=== PATIENT | male | born 1980 | race Caucasian/White ===

== ENCOUNTER 2019-05-16 08:53 | Outpatient (RCR) | payer BC, SELFPAY ==
--- NOTE | 2019-05-16 10:08 | PTOPEVAL ---
Thank you for referring this patient to [facility] [place]. Please review, sign, date and return this plan of care [facility]. I agree with and certify that the following plan of care is medically necessary. Referring Physician Date Admitting Provider: Attending Provider: Blane Trevizo MD Referring Provider: *PT Outpatient Evaluation Start: 05/16/19 09:07 Freq: Status: Active Protocol: Document 05/16/19 09:07 Nathalia (Rec: 05/16/19 10:04 [facility] [id number]) Therapy Assessment Status Assessment Status Assessment Status Evaluation Outpatient Past Medical History Cardiovascular History Hx Other Cardiac Disorders Yes: blood clot L groin. 2 angiograms Evaluation Information Problem Diagnosis L LE pain, Lumbar radiculopathy. Onset 05/05/19 Additional Evaluation Detail oswestry = 26%. Subjective Information patient reports he has been Query Text:As Reported By Patient/ having pain in the back of his Family L LE - in the calf muscle area. he reports the pain has been going on for about 2 months. he reports he has had a blood clot in the L groin in the past. he reports he has had an angiogram of the L LE about 2 weeks ago. he reports increased calf pain with walking and standing. he reports he is on Xarelto. Previous Treatments Previous Treatments For This Problem angiograms Prior Level of Function Comments Additional Prior Level of Function patient reports prior to 2 Comments months ago, he has had pain in the L calf, but reports it was at a manageable level. he reports in the last 2 month it has gotten worse. he reports he is currently off work - [employer]. Pain Assessment Timing of Pain Assessment Timing of Pain Assessment Assessment Pain Scale Pain Scale Used Numeric (1 - 10) Self Report Pain Assessment Lower Back Reported Pain Level 2 Pain Description Aching,Tightness Pain Frequency Acute,Continuous Additional Pain Comments similar to the calf pain. Left Calf/Calves Reported Pain Level 2 Pain Description Numbness,Tightness Pain Frequency Acute,Chronic Current Pain Intensity 2 Lowest Pain Intensity
--- NOTE | 2019-06-09 15:13 | PCPTNOTE ---
06/09/19n - patient was a no call/no show for therapy this morning. SHANNAN
--- NOTE | 2019-08-15 07:40 | PCPTNOTE ---
08/15/19 - mr. lopez has not been to therapy for over 2 months. he has been called and has not returned any calls or made appointments to finish his POC. as of this date, he will be DC'd from skilled PT and all progress towards goals will be taken from his most recent evaluation/note.
== END 2019-06-07 23:59 | disposition home or self-care (01) ==
LOC: CHSPT 08:53
PROVIDERS: Visit Provider Internal Medicine
DX: M79.605 Pain in left leg (principal); M54.17 Radiculopathy, lumbosacral region
CPT/HCPCS: 97014; 97110; 97162; G0283

== ENCOUNTER 2020-03-13 06:11 | Emergency (ER) | payer MEDICAID, SELFPAY ==
[2020-03-13] VITALS (8 sets, daily range): BP systolic 100–145; BP diastolic 61–92; PULSE 75–96; RESP 18–20; TEMP 36.2; O2SAT 96–99
--- NOTE | ~2020-03-13 | XR_ITS ---
EXAMINATION: XR chest 2V EXAM DATE: 03/13/2020 06:49 INDICATION: Mid chest pain. TECHNIQUE: Frontal and lateral projections of the chest obtained and reviewed. There is no prior ez dy for comparison. FINDINGS: The lungs are clear. There are no pleural effusions. The cardiomediastinal silhouette is within normal limits. There is no pneumothorax suspected. The bones and soft tissues are unremarkab le. IMPRESSION: No acute cardiopulmonary findings. Reviewed, dictated and finalized at location A.
--- NOTE | 2020-03-13 06:23 | ECG_ITS ---
Measurements Intervals [place] Rate: 98 P: 61 MI: 156 QRS: 28 QRSD: 120 T: 118 QT: 360 QTc: 460 Interpretive Statements SINUS RHYTHM INTRAVENTRICULAR CONDUCTION DELAY BORDERLINE R WAVE PROGRESSION, ANTERIOR LEADS BORDERLINE ST-T WAVE ABNORMALITY- DIFFUSE LEADS BASELINE ARTIFACT- I, II, III, AVR, AVL, AVF, V1-V4 BORDERLINE ECG Electronically Signed On 03-13-2020 8:29:16 CDT by Rick Braun D.O.
--- NOTE | 2020-03-13 06:23 | ED.CHESTPAIN ---
HPI - Chest Pain General Chief Complaint: Chest Pain Stated Complaint: chest pains Time Seen by Provider: 03/13/20 06:23 Source: patient Mode of arrival: ambulatory Limitations: no limitations History of Present Illness HPI narrative: 39-year-old man comes in today complaining of dull chest pain that has been present since yesterday morning. Patient states that it is not exacerbated by exercise But is relieved by sitting and resting. Has nausea, sweating. Denies vomiting, shortness of breath or ankle swelling. He has a history of arterial thromboembolism. MD complaint: chest pain Onset (ago): day(s) (1) Timing of current episode: constant Prior episodes: No Onset: during rest Pain location: substernal Pain radiation: none Severity: moderate Quality: dull Relieving factors: rest Exacerbating factors: nothing Context: history of DVT/PE Associated symptoms: nausea and diaphoresis Treatment prior to arrival: none Risk Factors Coronary artery disease risk factors: smoking history Pulmonary embolism risk factors: morbid obesity Related Data Home Medications Medication Instructions Recorded Confirmed No Home Medications 03/13/20 03/13/20 Allergies Allergy/AdvReac Type Severity Reaction Status Date / Time No Known Allergies Allergy Verified 03/13/20 06:19 Review of Systems Constitutional: Constitutional: Denies chills and Denies fever(s) Comments: diaphoresis Eyes: Eyes: Denies change in vision and Denies photophobia ENT: Denies dysphagia, Denies nasal congestion and Denies sore throat Cardiovascular: Cardiovascular: Reports chest pain and Denies radiating jaw, neck or arm pain Respiratory: Respiratory: Denies cough, Denies dyspnea and Denies wheezing Gastrointestinal: Gastrointestinal: Denies abdominal pain, Reports nausea and Denies vomiting Genitourinary: Genitourinary: Denies hematuria, Denies dysuria and Denies urinary frequency Musculoskeletal: Musculoskeletal: Denies back pain and Denies joint swelling Integumentary/Breasts: Skin/Breast: Denies pruritus, Denies erythema and Denies rash Neurologic: Denies vertigo, Denies dizziness and Denies syncope Allergic/Immunologic: Allergic/Immunologic: Denies lip swelling and Denies throat swelling [facility] Past Medical History Medical History Arterial embolism LLEMat Social History Social History (Reviewed 09/16/20 @ 07:38 by VIRIDIANA Esparza Smoking packs per day: 2 Smoking cigarettes per day: 40.0 Smoking status: Current every day smoker Tobacco type: cigarettes Alcohol intake: never Substance use: never Spiritual care concerns: No Exam Const: General: alert Nutritional Appearance: obese Orientation/consciousness: patient oriented x3 Other: mild-mod acute distress HENMT: Mouth: Yes moist mucous membranes Throat: posterior oropharynx normal Other: Diffuse dental decay Eyes: Conjunctivae: conjunctivae normal Pupils: Equal, round and reactive pupils present EOM: EOMs intact bilaterally Resp: Effort & Inspection: normal respiratory effort and not labored Auscultation: clear to auscultation bilaterally, no rales, no rhonchi and no wheezes Cardio: Rate: regular rate Rhythm: regular rhythm Heart sounds: no murmurs Skin: General skin exam: normal color, no jaundice and no pallor Rashes: no rashes Neuro: General: patient oriented x3, moves all extremities, no focal motor deficits and CN's II-XI intact bilaterally Speech: normal speech Gait exam (Neuro): Normal gait present Extrem: General: normal to inspection and no clubbing, cyanosis or edema Psych: Appearance: grossly normal and well kempt Mental Status: mental status grossly normal Affect: normal affect Attitude: cooperative Thought content: Yes Normal thought content present Course Vital Signs Vital signs: Vital Signs Pulse Rate 80 03/13/20 06:15 Temperature 36.2 C L 03/13/20
[2020-03-13] MEDS: NITROGLYCERIN SL 0.4 MG TABLET (06:38)
[2020-03-13 06:48] LABS: Basophils Absolute Auto 0.05 K/mm3 (0.00-0.10); Basophils Percent Auto 0.4 % (0.0-1.0); Eosinophils Absolute Auto 0.09 K/mm3 (0.02-0.50); Eosinophils Percent Auto 0.7 % (1.0-6.0); Hematocrit 48.6 % (40.0-54.0); Hemoglobin 16.6 g/dL (14.0-18.0); Immature Granulocyte Percent A 0.7 % (0.0-0.0); Lymphocytes Absolute Auto 2.11 K/mm3 (1.10-4.50); Lymphocytes Percent Auto 15.6 % (18.0-42.0); Mean Corpuscular HGB Conc 34.2 g/dL (32.0-36.0); Mean Corpuscular Hemoglobin 31.2 pg (27.0-31.0); Mean Corpuscular Volume 91.4 fL (78.0-102.0); Mean Platelet Volume 10.7 fl (8.7-11.0); Monocytes Absolute Auto 0.84 K/mm3 (0.10-0.90); Monocytes Percent Auto 6.2 % (2.0-11.0); Neutrophils Absolute Auto 10.3 K/mm3 (1.7-7.2); Neutrophils Percent Auto 76.4 % (50.0-70.0); Platelet Count Result 205 K/mm3 (150-420); Red Blood Count 5.32 M/mm3 (4.70-6.10); Red Cell Distribution Width 12.1 % (11.6-14.4); White Blood Count 13.5 K/mm3 (4.8-10.8)
[2020-03-13 06:50] LABS: Add Urine Microscopic? YES; Appearance Urine Clear (Clear); Bilirubin Urine 1+ (Negative); Blood Urine Negative (Negative); Color Urine Yellow (Yellow); Glucose Urine UA Negative (Negative); Ketones Urine Trace (Negative); Leukocyte Esterase Ur Negative LEU/UL (Negative); Nitrate Urine Negative (Negative); Protein Urine 1+ (Negative); Specific Grav Ur >= 1.030 (1.010-1.020)
[2020-03-13 06:54] LABS: RBC Urine 0-2 /hpf (0-2); WBC Urine 0-3 /hpf (0-3)
[2020-03-13 06:55] LABS: Bacteria Urine Trace /hpf
[2020-03-13 06:57] LABS: Alanine Aminotransferase 41 U/L (16-63); Albumin Level 3.5 g/dL (3.4-5.0); Alkaline Phosphatase 100 U/L (46-116); Anion Gap 10 mmol/L (8-16); Aspartate Amino Transferase 21 U/L (15-37); Bilirubin,Total 0.4 mg/dL (0.00-1.00); Blood Urea Nitrogen 9 mg/dL (7-18); Calcium 9.3 mg/dL (8.5-10.1); Carbon Dioxide 25 mmol/L (21-32); Chloride 102 mmol/L (98-108); Estimated CRCL calculation 116 ml/min; Estimated Glomerular Filt Rate > 60; Glucose 184 mg/dL (70-99); Lipase 191 U/L (73-393); Osmolality Calculated 287 mOsm/kg (285-295); Potassium 3.2 mmol/L (3.5-5.1); Sodium 137 mmol/L (136-145); Total Protein 7.5 g/dL (6.4-8.2)
[2020-03-13 06:58] LABS: Amphetamine Screen Urine Negative (Negative); Barbiturate Screen Urine Negative (Negative); Benzodiazepines Screen Urine Negative (Negative); Cannabinoid Screen Urine Negative (Negative); Cocaine Screen Urine Negative (Negative); Methadone Screen Urine Negative (Negative); Opiate Screen Urine Negative (Negative); Phencyclidine Screen Urine Negative (Negative)
[2020-03-13 07:00] LABS: Mucus Urine Moderate /lpf
[2020-03-13 07:07] LABS: Partial Thromboplastin Time 27.9 SEC (22.3-31.6); Prothrombin Time 10.5 Seconds (9.64-11.0)
[2020-03-13 07:12] LABS: D Dimer 0.47 mg/L (0.19-0.50)
[2020-03-13 07:14] LABS: Troponin I 0.51 ng/mL (0.00-0.056)
[2020-03-13 07:16] LABS: BNP 74 pg/mL (0-100)
--- NOTE | 2020-03-13 07:23 | PC.NURSE ---
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 Pt. requests transfer to [place].
--- NOTE | 2020-03-13 07:34 | ED.CHESTPAIN ---
HPI - Chest Pain General Chief Complaint: Chest Pain Stated Complaint: chest pains Time Seen by Provider: 03/13/20 06:23 Source: patient Mode of arrival: ambulatory Limitations: no limitations History of Present Illness HPI narrative: I resumed care from Dr. Inman just after 0700. In summary Luke is a 39M with a pmh of tobacco abuse (2ppd), obesity, and previous arterial thrombosis that prested to the ED with one day of dull chest pain. He woke up with dull pain yesterday that has not been getting better. It is accompanied with SOB, nausea, dizziness, diaphoresis but no vomiting or syncope. He thinks it was worse when he was walking in. The pain was relieved after a dose of nitroglycerin. Pain location: substernal Quality: dull Relieving factors: rest Exacerbating factors: nothing Context: history of DVT/PE Associated symptoms: nausea and diaphoresis Related Data Home Medications Medication Instructions Recorded Confirmed No Home Medications 03/13/20 03/13/20 Allergies Allergy/AdvReac Type Severity Reaction Status Date / Time No Known Allergies Allergy Verified 03/13/20 06:19 Review of Systems Constitutional: Constitutional: Reports as per HPI, Denies body ache(s) and Denies fever(s) Eyes: Eyes: Reports no additional eye complaints ENT: Reports system reviewed and no additional complaints, except as documented Cardiovascular: Cardiovascular: Reports as per HPI Respiratory: Respiratory: Reports as per HPI Gastrointestinal: Gastrointestinal: Denies abdominal pain, Denies belching, Denies diarrhea, Reports nausea and Denies vomiting Genitourinary: Genitourinary: Reports no additional male genitourinary complaints Musculoskeletal: Musculoskeletal: Reports no additional musculoskeletal complaints Integumentary/Breasts: Skin/Breast: Reports system reviewed and no additional complaints, except as docu Neurologic: Reports system reviewed and no additional complaints, except as documented Psychiatric: Psychiatric: Reports no additional psychiatric complaints Endocrine: Endocrine: Reports no additional endocrine complaints Hematologic/Lymphatic: Hematologic/Lymphatic: Reports no additional hematologic/lymphatic complaints Allergic/Immunologic: Allergic/Immunologic: Reports no additional allergic/immunologic complaints [facility] Past Medical History Medical History Arterial embolism LLE, Richardto Social History Social History (Reviewed 03/13/20 @ 07:38 by VIRIDIANA Esparza Smoking status: Current every day smoker Alcohol intake: current Substance use: never Living arrangements: with family Exam Const: General: comfortable, well developed, alert and awake Nutritional Appearance: overweight Orientation/consciousness: oriented to person, oriented to place and oriented to time Limitations: no limitations Other: Lying in bed with no acute distress but did appear slightly diaphoretic. HENMT: Head: normal to inspection, normocephalic and atraumatic Eyes: General: appearance normal, both eyes and all related structures Neck: Neck: normal visual inspection Chest: Chest palpation & inspection: normal inspection of the chest Resp: Effort & Inspection: normal respiratory effort and able to speak in complete sentences Other: Clear to auscultation bilterally Cardio: Jugular venous distension: no JVD Rate: regular rate Rhythm: regular rhythm Other: No murmurs. GI: Inspection: normal to inspection GI Palp: No abdominal tenderness and Yes Soft to palpation Back/Spine/Pelvis: Back: no CVA tenderness Skin: General skin exam: no rashes or lesions noted Neuro: General: oriented to person, oriented to place and oriented to time Cranial nerves: Yes CN's II-XII intact bilaterally Extrem: General: normal to inspection Psych: Appearance: grossly normal Mental Status: mental status grossly normal Course Course Emergency Course:
[2020-03-13] MEDS: HEPARIN SODIUM 5,000 UNITS/ML VIAL IV PUSH (07:43)
[2020-03-13] MEDS: HEPARIN SOD/D5W 100 UNITS/ML 25,000 UNITS/250 ML BAG 16.2 UNITS IV CONT (07:47)
--- NOTE | 2020-03-13 07:51 | PC.NURSE ---
Awaiting call back from Cardio at [facility].
--- NOTE | 2020-03-13 08:01 | PC.NURSE ---
ERP Dr. 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
--- NOTE | 2020-03-13 08:43 | PHAR ---
03/12/20 - PT'S ABW (135KG) TO IBW(73KG) RATIO >1.2, SO DOSING WEIGHT IS ~98KG. DISCUSSED WITH DR. MOSLEY, WHO CONFIRMED OKAY TO USE 98KG DOSING WEIGHT.
--- NOTE | 2020-03-13 09:12 | PC.NURSE ---
Call placed to [facility] for transfer to [place]. Report given and paperwork for transfer signed.
[2020-03-13 09:16] LABS: Ethanol < 3 mg/dL (0-6)
== END 2020-03-13 09:34 | disposition short-term general hospital (02) ==
PROVIDERS: Emergency Medicine; Emergency Provider Family Medicine; PCP Internal Medicine
DX: I21.4 Non-ST elevation (NSTEMI) myocardial infarction (principal)
CPT/HCPCS: 36415; 71046; 80053; 80307; 81001; 83690; 83880; 84484; 85025; 85380; 85610; 85730; 93005; 96365; 96366; 99285; A9270; J1644

== ENCOUNTER 2020-03-13 10:07 | Inpatient (IN) | payer MEDICAID, SELFPAY ==
[2020-03-13] VITALS (19 sets, daily range): BP systolic 116–138; BP diastolic 67–90; PULSE 72–84; RESP 14–24; TEMP 35.6–36.1; O2SAT 95–100; BMI 42.9
--- NOTE | 2020-03-13 10:07 | PC.NURSE ---
This patient, Luke Faulkner, was admitted to IMU Room 210-01. Patient/family oriented to hospital policies and general routines including ID bracelet, bed and alarms, visiting hours, pain management, procedures, bathroom and other care routines, personal items, smoking policy, room service/diet, and visiting hours. Valuables list has been completed. Information on how to activate the Rapid Response Team has been discussed. Patient/Family are encouraged to report perceived risks to care and to ask questions if they do not understand what they are told or what they should do.
--- NOTE | 2020-03-13 10:51 | PM.IMHP ---
H&P: HPI History of Present Illness Date/Time: date of service:03/13/20 10:51 Chief complaint: chest pain Narrative: Luke Faulkner is a 39 year old male Without previous knowledge of heart problems who is transferred here from [facility] for evaluation of chest pain and evidence of acute coronary syndrome. The patient was in his usual state of health when yesterday he noticed an episode of retrosternal chest pain describes as a dull heaviness that occurred for a short period of time approximately 15-20 minutes and then subsided altogether. He did not become too concerned and did not seek any medical attention at that time. He states this occurred the morning yesterday. This morning early in the morning after awakening sleepy had similar pain and was more severe so he decided to go to the emergency room at [facility] for evaluation. In the emergency room he was given a nitroglycerin tablet which apparently alleviated the chest pain. His electrocardiogram demonstrates sinus mechanism with some nonspecific T-wave abnormalities. There is no acute current of injury. His troponin level was elevated at 0.5 he was then heparinized and transferred [facility] for further evaluation. He appears to be somewhat uncomfortable in the bed supine in room 210 but he states is only tired he does not have any pain currently. The patient is a sedentary individual he does not exercise with any regularity but he does not notice any exertional chest pain with normal daily activities. He has no sense of palpitations orthopnea PND or edema. He does state that interestingly he had of vascular thrombus it sounds like an arterial thrombus about 2 years ago treated interventionally in the left lower extremity and [facility]. He states that he had some ischemic problems in the great toe on the left side and had a procedure to extract the clot. We do not have any records of any of that care obviously at the time of this dictation. After that procedure he was recommended to take anticoagulation with Xarelto for 6 months which he did and then that was withdrawn by his physicians. He currently takes no medication of any kind. He denies any knowledge of hypertension diabetes or dyslipidemia. He smokes heavily about to 2 packs per day. He also drinks alcohol daily. 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 Review of Systems Constitutional: Constitutional: Reports no additional constitutional complaints Eyes: Eyes: Reports no additional eye complaints ENT: Reports system reviewed and no additional complaints, except as documented Cardiovascular: Cardiovascular: Reports as per HPI Respiratory: Respiratory: Reports no additional respiratory complaints Gastrointestinal: Gastrointestinal: Reports no additional gastrointestinal complaints Musculoskeletal: Musculoskeletal: Reports back pain Integumentary/Breasts: Skin/Breast: Reports system reviewed and no additional complaints, except as docu Neurologic: Reports system reviewed and no additional complaints, except as documented Psychiatric: Psychiatric: Reports no additional psychiatric complaints PMFSH Social History Social History Smoking status: Current every day smoker Alcohol intake: current Substance use: never Meds Home Medications and Allergies Home Medications Medication Instructions Recorded Confirmed Type No Home Medications 03/13/20 03/13/20 History Allergies Allergy/AdvReac Type Severity Reaction Status Date / Time No Known Allergies Allergy Verified 03/13/20 06:19 Exam Const: General: no acute distress and uncomfortable Other: Markedly obese white male appears to be in poor overall health. He appears uncomfortable but currently denies pain HENMT: Mouth: Yes moist mucous membranes Eyes: Sclera: sclerae normal Pupils: Equal, round and reactive pupils present Neck: Neck: supple
--- NOTE | 2020-03-13 12:03 | WPDCARDPROC ---
Cardiac Cath Procedure Note Date of procedure:: 03/13/20 Performing physician:: Alan Little MD Indication:: Acute coronary syndrome Brief clinical history:: 39-year-old man with obesity and longstanding cigarette smoking presents with intermittent chest pain and troponin elevation to 0.5. Transferred [facility] for further evaluation. Patient has no previous cardiac history has a history of a left lower extremity arterial thrombus about 2 years ago treated interventionally and anticoagulated for about 6 months at that time. Unfortunately cigarette smoking has continued. Procedure Procedure performed:: Left heart catheterization with left ventriculography and coronary angiography. Sedation/Medication given:: Fentanyl 50 mg Versed 2 mg case start time 11:36 a.m. case end time 11:56 a.m. sedation provided by Chantal Gallegos RN, trained observer Access site:: right femoral Estimated blood loss:: 15-20 cc Procedure note:: patient was brought to the cardiac catheterization lab in the postabsorptive state the right femoral triangle was prepared in the normal fashion anesthesia was provided with 1% lidocaine infiltrated locally. Using the modified Seldinger technique a 5 Liberian sheath was placed into the femoral artery. I then performed left heart catheterization. A 5 Liberian angled pigtail catheter was used to document left-sided hemodynamics, pullback pressures across the aortic valve and injected LV g in the PALUMBO projection. After this the pigtail catheter was withdrawn. A standard 5 Liberian FL4 catheter was used to engage inject the left coronary artery in multiple projections. After this the right coronary was injected using a 5 Liberian JR4 catheter. The case was then terminated the sheath was sutured into position he was taken to the holding area for manual sheath removal and a post cath recovery. There were no procedural complications Findings:: hemodynamics: Central aortic pressure was 126/78 left ventricle 126/6 end-diastolic pressure of 16 there is no significant gradient on pullback across the aortic valve. Left ventricle: The left ventricle is mildly enlarged. The posterior basal segment is akinetic. The remainder of the inferior wall is severely hypodynamic the anterior wall appears to be [id number] hypodynamic but was not well opacified as the catheter was at the base of the posterior wall. Global ejection fraction appears to be approximately 40%. Left main coronary artery is nicely patent the left anterior descending is a medium caliber artery which gives rise to a moderate-sized diagonal branch there is a 80% stenosis in the trunk of the LAD at the origin of this diagonal branch after the origin of the branch the LAD itself is 100% occluded. It is seen to fill on [id number] collaterals down to the apex. Obviously it is a small under filled vessel. Circumflex is a large caliber vessel giving rise to a high marginal/ ramus intermedius branch which is moderately diffusely diseased but without high-grade lesion. The trunk of the circumflex is nicely patent it provides a large 2nd OM branch there is a 50% stenosis at the origin of the trunk of the circumflex after the 2nd OM takes its origin. Posterior branch of the circumflex there is a very small sub branch that has a 90% stenosis. Right coronary artery is small to medium in caliber and is 100% occluded in the 2nd portion. There is a right ventricular branch prior to the occlusion. There are some very faint collaterals to the distal right coronary artery seen on left coronary injection. Conclusion:: 1. Significant coronary artery disease in this 39-year-old man including total occlusion of the mid LAD which appears to be providing viable anterior wall as the vessel is collateralized. There is a 80-90% stenosis in the LAD prior to the occlusion jeopardizing a diagonal branch. 2. Circumflex disease including moderate non high-grade dis
[2020-03-13 12:04] LABS: Activated Clotting Time 114 sec (74-137)
--- NOTE | 2020-03-13 12:10 | SUR.PHASEII ---
BEGIN PHASE II RECOVERY. RETURNS TO SOIL ANALYST 3 VIA STRETCHER S/P [facility] W/ DR. HERNANDEZ. AWAKE, BUT DROWNSY. DENIES CP OR SOB ON ARRIVAL. VSS. MONITOR SR. 5FR SHEATH R. GROIN INTACT. DRESSING D/I. SITE WITHOUT BLEEDING OR HEMATOMA. SITE NONTENDER. FAMILY TO BEDSIDE. WILL CONTINUE TO MONITOR.
--- NOTE | 2020-03-13 12:58 | SUR.PHASEII ---
MANUAL 5FR SHEATH PULL R. FEM ARTERY PER PROTOCOL AT THIS TIME. FIRM STEADY MANUAL PRESSURE TO SITE UNTIL HEMOSTASIS. TOLERATING WELL. VSS.
--- NOTE | 2020-03-13 13:30 | SUR.PHASEII ---
HEMOSTASIS ACHIEVED TO R. GROIN PUNCTURE SITE AFTER 32 MINUTES MANUAL PRESSURE HOLD. TOLERATED WELL. SITE SOFT, NONTENDER. NO BLEEDING OR HEMATOMA NOTED. SITE DRESSED W/ STAT SEAL AND TEGADERM. R. PEDAL PULSE STRONG. REVIEWED BEDREST ORDERS AND BEDREST ACTIVITY RESTRICTIONS W/ PT. VOICED UNDERSTANDING. BEDREST X 4 HOURS UNTIL 1730. IVF'S RUNNING ORDERED. VSS. MOTHER TO BEDSIDE. AJAY CONTINUE TO MONITOR.
--- NOTE | 2020-03-13 14:45 | SUR.PHASEII ---
END PHASE II RECOVERY. REPORT CALLED TO EMILIA CULLEN RN AT 1415. RETURNED VIA BED TO IMU 210. NO CHANGE IN R. GROIN SITE. STRONG R. PEDAL AND POST TIB PULSE. VSS. VOICES NO C/O.
[2020-03-13] MEDS: SODIUM CHLORIDE 0.9% IV 1,000 ML 125 ML IV CONT (15:00)
--- NOTE | 2020-03-13 17:36 | PM.TDS ---
Transfer Discharge Sum: Prov Provider Date of admission: 03/13/20 11:47 Primary care physician: Blane Trevizo MD Admitting clinician: Lucien Little MD Attending physician on admission: Alan Little Attending physician on discharge: Alan Little Discharging clinician: Delores Jordan Anticipated date of transfer: 03/13/20 Receiving physician/facility: at [facility] DS: Admitting Diagnosis Admitting Diagnosis Admitting Diagnosis: Acute coronary syndrome DS: Discharge Diagnosis Discharge Diagnosis (1) Acute coronary syndrome: Code(s): I24.9 - Acute ischemic heart disease, unspecified Status: Acute Assessment and Plan: Transferred from [facility] with acute coronary syndrome. Cardiac catheterization 03/13/2020: The left ventricle is mildly enlarged. The posterior basal segment is akinetic. The remainder of the inferior wall is severely hypodynamic the anterior wall appears to be [id number] hypodynamic but was not well opacified as the catheter was at the base of the posterior wall. Global ejection fraction appears to be approximately 40% Significant coronary artery disease in this 39-year-old man including total occlusion of the mid LAD which appears to be providing viable anterior wall as the vessel is collateralized. There is a 80-90% stenosis in the LAD prior to the occlusion jeopardizing a diagonal branch. Circumflex disease including moderate non high-grade disease in a small to medium size ramus intermedius branch as well as a 90% stenosis and a small distal subbranch of the posterior circumflex vessel. 100% occlusion of the mid right coronary artery with faint collaterals and evidence of previous infero posterior infarction on LV g Recommendations transferred to [facility]. Revascularization options would include CABG to the LAD/ diagonal branch or a consider higher risk HEALTHCARE MANAGER LAD diagonal intervention in this otherwise unfortunately young man with advanced coronary disease. The RCA territory appears to be an infarct zone and is unlikely to benefit from revascularization (2) Tobacco abuse: Code(s): Z72.0 - Tobacco use Status: Acute Assessment and Plan: Smoking cessation counseling Transfer Discharge Sum: Med Medications Active and Home Medications: Home Medications No Home Medications 03/13/20 [History Confirmed 03/13/20] Active Medications Aspirin (Aspirin Ec) 81 mg PO QAM [facility] Sodium Chloride (Normal Saline Iv) 1,000 mls @ 125 mls/hr IV CONT .Q8H ONE Stop: 03/13/20 20:00 Last Admin: 03/13/20 15:00 Dose: 125 mls/hr Documented by: Rosuvastatin Calcium (Crestor) 20 mg PO QAM [facility] Transfer Discharge Sum: Hosp Hospital Course Hospital course: Luke Faulkner is a 39 year old male without previous knowledge of heart problems who was transferred to [facility] from [facility] for evaluation of chest pain and evidence of acute coronary syndrome. He was in his usual state of health when yesterday he noticed an episode of retrosternal chest pain describes as a dull heaviness that occurred for a short period of time approximately 15-20 minutes and then subsided altogether. He did not become too concerned and did not seek any medical attention at that time. He states this occurred the morning yesterday. This morning early in the morning after awakening sleepy had similar pain and was more severe so he decided to go to the emergency room at [place] for evaluation. In the emergency room he was given a nitroglycerin tablet which apparently alleviated the chest pain. He also received aspirin in the emergency room. His electrocardiogram demonstrates sinus mechanism with some nonspecific T-wave abnormalities. There is no acute current of injury. His troponin level was elevated at 0.5 he was then heparinized and transferred [facility] for further evaluation. He w
== END 2020-03-13 19:22 | disposition short-term general hospital (02) | DRG 191 ==
PROVIDERS: Internal Medicine Cardiovascular Disease; Admitting Provider Specialist; PCP Internal Medicine; Visit Provider Specialist
PROC: 4A023N7 Measurement of Cardiac Sampling and Pressure, Left Heart, Percutaneous Approach (ICD-10-PCS; CPT 93452; principal; 2020-03-13 11:00)
DX: I25.10 Atherosclerotic heart disease of native coronary artery without angina pectoris (principal); I24.9 Acute ischemic heart disease, unspecified; F17.210 Nicotine dependence, cigarettes, uncomplicated; E66.9 Obesity, unspecified; Z68.41 Body mass index [BMI] 40.0-44.9, adult; Z28.21 Immunization not carried out because of patient refusal; Z86.718 Personal history of other venous thrombosis and embolism
CPT/HCPCS: 93458; A9270; C1887; C1894; G0378; J0461; J1644; J2250; J3010; J7030; J7040

== ENCOUNTER 2021-06-03 15:01 | Outpatient (CLI) | payer OTHER, SELFPAY ==
[2021-06-03 15:25] LABS: Basophils Absolute Auto 0.05 K/mm3 (0.00-0.10); Basophils Percent Auto 0.5 % (0.0-1.0); Eosinophils Absolute Auto 0.17 K/mm3 (0.02-0.50); Eosinophils Percent Auto 1.6 % (1.0-6.0); Hematocrit 55.4 % (40.0-54.0); Hemoglobin 18.6 g/dL (14.0-18.0); Immature Granulocyte Absolute 0.06 K/mm3 (0.00-0.00); Immature Granulocyte Percent A 0.6 % (0.0-0.0); Lymphocytes Absolute Auto 2.33 K/mm3 (1.10-4.50); Lymphocytes Percent Auto 21.4 % (18.0-42.0); Mean Corpuscular HGB Conc 33.6 g/dL (32.0-36.0); Mean Corpuscular Hemoglobin 31.2 pg (27.0-31.0); Mean Corpuscular Volume 92.8 fL (78.0-102.0); Mean Platelet Volume 10.6 fl (8.7-11.0); Monocytes Absolute Auto 0.88 K/mm3 (0.10-0.90); Monocytes Percent Auto 8.1 % (2.0-11.0); Neutrophils Absolute Auto 7.4 K/mm3 (1.7-7.2); Neutrophils Percent Auto 67.8 % (50.0-70.0); Platelet Count Result 226 K/mm3 (150-420); Red Blood Count 5.97 M/mm3 (4.70-6.10); White Blood Count 10.9 K/mm3 (4.8-10.8)
[2021-06-03 15:26] LABS: Appearance Urine Clear (Clear); Bilirubin Urine Negative (Negative); Color Urine Light Yellow (Yellow); Glucose Urine UA Negative (Negative); Ketones Urine Negative (Negative); Leukocyte Esterase Ur Negative (Negative); Nitrate Urine Negative (Negative); Protein Urine Negative (Negative); Urobilinogen Urine 0.2 mg/dL (0.2-1.0)
[2021-06-03 15:38] LABS: MALB Creatinine Ratio 9.3 mg/g (0-30); Microalbumin Urine Random < 13.0 mg/L
[2021-06-03 16:23] LABS: Add Urine Microscopic? YES; Blood Urine Trace-Intact (Negative)
[2021-06-03 16:24] LABS: Bacteria Urine Trace /hpf; RBC Urine None seen /hpf (0-2); Squamous Epithelial Cell Urine Rare /hpf (Few); WBC Urine None seen /hpf (0-3)
[2021-06-03 16:39] LABS: Alanine Aminotransferase 40 U/L (16-63); Albumin Level 3.7 g/dL (3.4-5.0); Alkaline Phosphatase 108 U/L (46-116); Anion Gap 12 mmol/L (8-16); Aspartate Amino Transferase 20 U/L (15-37); Bilirubin,Total 0.4 mg/dL (0.00-1.00); Blood Urea Nitrogen 13 mg/dL (7-18); Calcium 8.7 mg/dL (8.5-10.1); Carbon Dioxide 27 mmol/L (21-32); Chloride 104 mmol/L (98-108); Cholesterol 122 mg/dL (0-200); Estimated Glomerular Filt Rate > 60; Glucose 120 mg/dL (70-99); HDL Direct 20 mg/dL (40-60); LDL Cholesterol Calculated 70 mg/dL (<130); Osmolality Calculated 297 mOsm/kg (285-295); Potassium 4.5 mmol/L (3.5-5.1); Sodium 143 mmol/L (136-145); Thyroid Stimulating Hormone 1.73 uIU/mL (0.36-3.74); Total Protein 7.9 g/dL (6.4-8.2); Triglycerides 161 mg/dL (0-150)
[2021-06-03 18:02] LABS: Hemoglobin A1C 5.7 % (<5.7)
== END 2021-06-03 15:02 | disposition home or self-care (01) ==
LOC: CHSLAB 15:04
PROVIDERS: PCP Internal Medicine; Visit Provider Internal Medicine
DX: E11.9 Type 2 diabetes mellitus without complications (principal); I25.10 Atherosclerotic heart disease of native coronary artery without angina pectoris
CPT/HCPCS: 36415; 80053; 80061; 81001; 82043; 83036; 84443; 85025

== ENCOUNTER 2021-07-28 15:42 | Outpatient (CLI) | payer OTHER, SELFPAY ==
--- NOTE | 2021-07-28 15:43 | ECG_ITS ---
Measurements Intervals [place] Rate: 86 P: 50 NC: 154 QRS: 112 QRSD: 122 T: 41 QT: 380 QTc: 455 Interpretive Statements SINUS RHYTHM RIGHT AXIS DEVIATION INTRAVENTRICULAR CONDUCTION DELAY BORDERLINE R WAVE PROGRESSION, ANTERIOR LEADS MINIMAL Q WAVES- INFERIOR LEADS BORDERLINE T WAVE ABNORMALITY- HIGH LATERAL LEADS BASELINE ARTIFACT- I, III, AVR, AVL, AVF, V1 BORDERLINE ECG Electronically Signed On 07-28-2021 16:34:02 AUTOMATIC NAILING MACHINE OPERATOR by Rick Braun D.O.
== END 2021-07-28 15:43 | disposition home or self-care (01) ==
LOC: CHSCARD 15:43
PROVIDERS: PCP Internal Medicine; Visit Provider Internal Medicine Cardiovascular Disease
DX: I25.810 Atherosclerosis of coronary artery bypass graft(s) without angina pectoris (principal)
CPT/HCPCS: 93005

== ENCOUNTER 2021-09-24 10:25 | Outpatient (RCR) | payer OTHER, SELFPAY ==
--- NOTE | 2021-09-24 11:03 | PTOPEVAL ---
Thank you for referring Luke Faulkner to [facility].? The patient is scheduled to be seen for therapy? ____x/week for ___ weeks. Please review, sign, date and return this plan of care TERESA. I agree with and certify that the following plan of care is medically necessary. Referring Physician Date Admitting Provider: Attending Provider: Blane Trevizo MD Referring Provider: *PT Outpatient Evaluation Start: 09/24/21 10:26 Freq: Status: Active Protocol: Document 09/24/21 10:26 [facility] (Rec: 09/24/21 11:02 [facility] [id number]) Therapy Assessment Status Assessment Status Assessment Status Evaluation Outpatient Past Medical History Neurological History Hx Neurological Disorders No Significant History Cardiovascular History Hx Deep Vein Thrombosis Yes: with clot removal Respiratory History Hx Respiratory Disorders No Significant History Gastrointestinal History Hx Gastrointestinal Disorders No Significant History Genitourinary History Hx Genitourinary Disorders No Significant History Musculoskeletal History Hx Musculoskeletal Disorders No Significant History Hematological History Hx Hematological Disorders No Significant History Endocrine History Hx Endocrine Disorders No Significant History HEENT History Hx HEENT Disorders No Significant History Integumentary History Hx Skin Disorders No Significant History Reproductive History Hx Reproductive Disorders No Significant History Psychosocial History Hx Psychiatric Disorders No Significant History Pain History History of Any Previous or Ongoing No Significant History Instance of Pain Anesthesia History Hx Anesthesia Reactions No Significant History Evaluation Information Problem Diagnosis lower back and L LE pain Onset 09/17/21 Subjective Information patient reports he is having Query Text:As Reported By Patient/ pain in the lower back and Family down the L LE. he reports he has been having symptoms for a few years. he reports he has not had any new xrays or images. he reports increased pain/symptoms with walking. he reports he also has pain with prolonged standing. he reports no pain with sitting. he reports thus far he has been using medication to manage his pain, but patient reports it only helps a little . he reports pain radiates down to the L foot. he reports
== END 2021-10-07 09:30 | disposition home or self-care (01) ==
LOC: CHSPT 10:25
PROVIDERS: PCP Internal Medicine; Visit Provider Internal Medicine
DX: M54.9 Dorsalgia, unspecified (principal); M79.606 Pain in leg, unspecified
CPT/HCPCS: 97014; 97110; 97161; G0283

== ENCOUNTER 2022-01-03 07:47 | Outpatient (CLI) | payer OTHER, SELFPAY | END 2022-01-03 07:48 | disposition home or self-care (01) | PROVIDERS: PCP Internal Medicine; Visit Provider Physician Assistant | DX: M54.16 Radiculopathy, lumbar region (principal); M54.50 Low back pain, unspecified; M43.10 Spondylolisthesis, site unspecified | CPT/HCPCS: 99199 ==

== ENCOUNTER 2022-01-06 07:50 | Outpatient (CLI) | payer OTHER, SELFPAY ==
--- NOTE | ~2022-01-06 | MR_ITS ---
. EXAMINATION: MR lumbar spine wo con DATE: 01/06/2022 09:12 INDICATION: Low back pain radiating down the left leg. TECHNIQUE: Magnetic resonance imaging (MRI) of the lumbar spine was performed without intravenous con trast. Sequences included sagittal T2-weighted FSE, sagittal T2-weighted FS FSE, sagittal T1-weighted FSE, and axial T2-weighted FSE. COMPARISON: Lumbar spine MRI 10/01/2018 FINDINGS: There are chronic bilateral L5 pars defects. There is 5 mm anterolisthesis of L5 on S1. The re is mild chronic anterior wedging of T12 vertebral body. There is mildly decreased disc height at L 4-L5 with endplate remodeling. The distal spinal cord signal intensity is normal. The conus medullari s is at L1-L2. There are cysts in the kidneys measuring up to 14 mm on the left. The following disc l evels are specifically discussed: L1-L2: The disc does not extend beyond the endplate margin. There is no facet joint osteoarthritis. T here is no neural foraminal stenosis. There is no central canal stenosis. L2-L3: The disc does not extend beyond the endplate margin. There is mild bilateral facet joint osteo arthritis. There is no neural foraminal stenosis. There is no central canal stenosis. L3-L4: The disc does not extend beyond the endplate margin. There is mild bilateral facet joint osteo arthritis. There is no neural foraminal stenosis. There is no central canal stenosis. L4-L5: The disc does not extend beyond the endplate margin. There is moderate bilateral facet joint o steoarthritis. There is no neural foraminal stenosis. There is no central canal stenosis. L5-S1: The disc is bulging. There is mild bilateral facet joint osteoarthritis. There is mild bilater al neural foraminal stenosis. There is mild central canal stenosis. IMPRESSION: 1. Chronic bilateral L5 pars defects with grade 1 anterolisthesis of L5 on S1. 2. Mild lumbar spondylosis, stable from 10/01/2018. Reviewed, dictated and finalized at location A.
== END 2022-01-06 07:51 | disposition home or self-care (01) ==
PROVIDERS: PCP Internal Medicine
DX: M54.16 Radiculopathy, lumbar region (principal); M54.50 Low back pain, unspecified; M43.10 Spondylolisthesis, site unspecified
CPT/HCPCS: 72148

== ENCOUNTER 2022-03-31 10:04 | Outpatient (CLI) | payer OTHER, SELFPAY ==
--- NOTE | 2022-03-31 11:30 | NEURO_ITS ---
Impression: # Complains of left lower extremity pain. # Normal nerve conduction study. # Normal needle/EMG exam. # Clinical correlation recommended. Nerve Conduction Studies Anti Sensory Summary Table Stim Site NR Peak (ms) P-T Amp (?V) Site1 Site2 Delta-P (ms) Dist (cm) Abbe (m/s) Left Sup Fibular Anti Sensory (Ant Lat Mall) 14 cm 3.6 19.4 14 cm Ant Lat Mall 3.6 16.0 44 Left Sural Anti Sensory (Lat Mall) Calf 4.0 14.2 Calf Lat Mall 4.0 16.0 40 Motor Summary Table Stim Site NR Onset (ms) O-P Amp (mV) Site1 Site2 Delta-0 (ms) Dist (cm) Abbe (m/s) Left Lateral Plantar Motor (ADM) Med Mall 5.0 6.6 Left Peroneal Motor (Vastus Med) Ankle 5.2 3.5 Popit Ankle 9.4 43.0 46 Popit 14.6 4.4 Left Tibial Motor (Abd Wong Brev) Ankle 4.8 5.5 Knee Ankle 8.6 42.0 49 Knee 13.4 2.9 F Wave Studies NR F-Lat (ms) L-R F-Lat (ms) Left Peroneal (Mrkrs) (EDB) 51.30 Left Tibial (Mrkrs) (Abd Hallucis) 50.04 EMG Side Muscle Nerve Root Ins Act Fibs Amp Dur Recrt Comment Left AntTibialis Dp Br Fibular L4-5 Nml Nml Nml Nml Nml Left Gastroc Tibial S1-2 Nml Nml Nml Nml Nml Left Fibularis Long Sup Br Fibular L5-S1 Nml Nml Nml Nml Nml Left Flex Dig Long Tibial L5-S2 Nml Nml Nml Nml Nml Left Ext Dig Brev Dp Br Fibular L5, S1 Nml Nml Nml Nml Nml MTDD
== END 2022-03-31 10:05 | disposition home or self-care (01) ==
LOC: ANHNEURO 10:07
PROVIDERS: PCP Internal Medicine; Visit Provider Physician Assistant
DX: M54.16 Radiculopathy, lumbar region (principal)
CPT/HCPCS: 95886; 95909

== ENCOUNTER 2022-07-02 10:00 | Outpatient (CLI) | payer OTHER, SELFPAY ==
[2022-07-02 10:17] LABS: Add Urine Microscopic? NO; Appearance Urine Clear (Clear); Bilirubin Urine Negative (Negative); Blood Urine Negative (Negative); Color Urine Light Yellow (Yellow); Glucose Urine UA Negative (Negative); Ketones Urine Negative (Negative); Leukocyte Esterase Ur Negative (Negative); Nitrate Urine Negative (Negative); Protein Urine Negative (Negative); Specific Grav Ur 1.025 (1.010-1.020); Urobilinogen Urine 0.2 mg/dL (0.2-1.0)
[2022-07-02 10:18] LABS: Basophils Absolute Auto 0.05 K/mm3 (0.00-0.10); Basophils Percent Auto 0.5 % (0.0-1.0); Eosinophils Absolute Auto 0.15 K/mm3 (0.02-0.50); Eosinophils Percent Auto 1.4 % (1.0-6.0); Hematocrit 51.1 % (40.0-54.0); Hemoglobin 17.2 g/dL (14.0-18.0); Immature Granulocyte Absolute 0.13 K/mm3 (0.00-0.00); Immature Granulocyte Percent A 1.2 % (0.0-0.0); Lymphocytes Percent Auto 18.5 % (18.0-42.0); Mean Corpuscular HGB Conc 33.7 g/dL (32.0-36.0); Mean Corpuscular Hemoglobin 31.6 pg (27.0-31.0); Mean Corpuscular Volume 93.8 fL (78.0-102.0); Mean Platelet Volume 10.5 fl (8.7-11.0); Monocytes Absolute Auto 1.06 K/mm3 (0.10-0.90); Monocytes Percent Auto 9.8 % (2.0-11.0); Neutrophils Absolute Auto 7.4 K/mm3 (1.7-7.2); Neutrophils Percent Auto 68.6 % (50.0-70.0); Platelet Count Result 185 K/mm3 (150-420); Red Blood Count 5.45 M/mm3 (4.70-6.10); Red Cell Distribution Width 12.6 % (11.6-14.4); White Blood Count 10.8 K/mm3 (4.8-10.8)
[2022-07-02 10:31] LABS: Creatinine Urine 106.17 mg/dL (40-278); MALB Creatinine Ratio 12.2 mg/g (0-30); Microalbumin Urine Random < 13.0 mg/L
[2022-07-02 10:35] LABS: Hemoglobin A1C 5.9 % (<5.7)
[2022-07-02 10:54] LABS: Alanine Aminotransferase 35 U/L (16-63); Albumin Level 3.6 g/dL (3.4-5.0); Alkaline Phosphatase 82 U/L (46-116); Anion Gap 3 mmol/L (8-16); Aspartate Amino Transferase 15 U/L (15-37); Bilirubin,Total 0.3 mg/dL (0.00-1.00); Blood Urea Nitrogen 9 mg/dL (7-18); Calcium 8.1 mg/dL (8.5-10.1); Carbon Dioxide 30 mmol/L (21-32); Chloride 101 mmol/L (98-108); Cholesterol 165 mg/dL (0-200); Estimated Glomerular Filt Rate > 60; Glucose 124 mg/dL (70-99); HDL Direct 26 mg/dL (40-60); LDL Cholesterol Calculated 114 mg/dL (<130); Osmolality Calculated 277 mOsm/kg (285-295); Potassium 4.1 mmol/L (3.5-5.1); Sodium 134 mmol/L (136-145); Thyroid Stimulating Hormone 1.31 uIU/mL (0.36-3.74); Total Protein 6.9 g/dL (6.4-8.2); Triglycerides 126 mg/dL (0-150)
[2022-07-02 11:00] LABS: CRP < 0.5 mg/dL (0.0-0.9)
== END 2022-07-02 10:01 | disposition home or self-care (01) ==
LOC: CHSLAB 10:02
PROVIDERS: PCP Internal Medicine; Visit Provider Internal Medicine
DX: I25.10 Atherosclerotic heart disease of native coronary artery without angina pectoris (principal); E11.9 Type 2 diabetes mellitus without complications; M54.9 Dorsalgia, unspecified
CPT/HCPCS: 36415; 80053; 80061; 81003; 82043; 83036; 84443; 85025; 86140

== ENCOUNTER 2022-07-03 11:58 | Outpatient (CLI) | payer OTHER, SELFPAY ==
[2022-07-03 12:53] LABS: Phosphorus 3.9 mg/dL (2.6-4.7)
[2022-07-07 14:31] LABS: Ionized Calcium 4.7 mg/dL (4.8-5.6)
[2022-07-08 12:04] LABS: Vitamin D 1,25 (OH)2 Total 43 pg/mL (18-72); Vitamin D2 1,25 (OH)2 <8 pg/mL; Vitamin D3 1,25 (OH)2 43 pg/mL
[2022-07-08 16:44] LABS: Vitamin D 25 Hydroxy 6 ng/mL (30-100)
[2022-07-08 20:57] LABS: Parathyroid Intact 76 pg/mL (14-64)
== END 2022-07-03 11:59 | disposition home or self-care (01) ==
LOC: CHSLAB 12:01
PROVIDERS: PCP Internal Medicine; Visit Provider Internal Medicine
DX: E83.51 Hypocalcemia (principal)
CPT/HCPCS: 36415; 82306; 82330; 82652; 83970; 84100